=== PATIENT | female | born 1975 | race Caucasian/White ===

== ENCOUNTER 2017-02-26 13:34 | Emergency (ER) | payer MEDICAID ==
[~2017-02-26] VITALS: Ht 162.6 cm; Wt 67.0 kg
[~2017-02-26 13:34] MED LIST: PREN1TAB49 PO
[2017-02-26 13:45] VITALS: Ht 162.6 cm; Wt 67.0 kg
[2017-02-26] MEDS ORDERED: SOD CHLORIDE 0.9% 1,000 ML IV STA (15:50)
[2017-02-26] MEDS ORDERED: KETOROLAC 15 MG INJ IV STA (15:50)
[2017-02-26] MEDS ORDERED: ONDANSETRON 4 MG INJ IV STA (15:50)
[2017-02-26] MEDS ORDERED: BELLADONNA/PHENOBARBITAL TAB PO STA (15:51)
[2017-02-26] MEDS ORDERED: LIDOCAINE/MYLANTA 40 ML BTL PO STA (15:51)
[2017-02-26] MEDS ORDERED: ALPRAZOLAM 0.25 MG TAB PO ONE (16:00)
[2017-02-26 16:03] LABS: ADD SCAN DIFF NO
[2017-02-26 16:06] LABS: BASOPHIL # 0.1 10^3/ul (0.0-0.1); BASOPHILS % 0.7 % (0.0-2.0); EOSINOPHILS # 0.1 10^3/ul (0.0-0.5); EOSINOPHILS % 1.8 % (0.0-7.0); HEMATOCRIT 38.1 % (37.0-47.0); HEMOGLOBIN 12.1 g/dl (12.0-16.0); LYMPHOCYTES # 1.4 10^3/ul (0.8-2.9); MEAN CORPUSCULAR HEMOGLOBIN 29.9 pg (29.0-33.0); MEAN CORPUSCULAR HGB CONC 31.8 g/dl (32.0-37.0); MEAN CORPUSCULAR VOLUME 94.1 fl (82.0-101.0); MEAN PLATELET VOLUME 10.8 fl (7.4-10.4); MONOCYTE # 0.4 10^3/ul (0.3-0.9); NEUTROPHIL # 5.1 10^3/ul (1.6-7.5); NEUTROPHILS % 71.2 % (39.0-77.0); PLATELET COUNT 323 10^3/UL (140-415); RED BLOOD COUNT 4.05 10^6/ul (4.20-5.40); RED CELL DISTRIBUTION WIDTH 13.7 % (11.5-14.5); WHITE BLOOD COUNT 7.1 10^3/ul (4.8-10.8)
--- NOTE | 2017-02-26 16:14 | RADRPT ---
PROCEDURE: XR Chest. CLINICAL INDICATION: Abdominal pain. TECHNIQUE: Single frontal view. COMPARISON: None. FINDINGS: The lungs are clear. The heart size is normal. There is no pleural effusion. There is no pneumothorax. IMPRESSION: 1. Normal chest radiograph. RPTAT: QQ .Alpesh Larsen MD, Date Time Electronically viewed and signed by .Alpesh Larsen MD, on 02/26/2017 16:14 .R/
[2017-02-26 16:28] LABS: ALBUMIN 4.5 g/dl (3.3-4.9); ALBUMIN/GLOBULIN RATIO 1.12; BILIRUBIN,INDIRECT 0.2 mg/dl (0-1.1); BILIRUBIN,TOTAL 0.2 mg/dl (0.2-1.3); CALCIUM 9.4 mg/dl (8.4-10.2); CREATININE 0.48 mg/dl (0.44-1.00); TOTAL PROTEIN 8.5 g/dl (6.1-8.1)
[2017-02-26 16:38] LABS: TROPONIN-I 0.016 ng/ml (0.00-0.12)
[2017-02-26 17:25] LABS: URINE BLOOD (Dip) POC 1+ (NEGATIVE)
[2017-02-26 17:38] LABS: ADD UMIC YES; URINE BILIRUBIN (Dip) NEGATIVE (NEGATIVE); URINE BLOOD (Dip) TRACE (NEGATIVE); URINE COLOR LT. YELLOW (YELLOW); URINE GLUCOSE (Dip) NEGATIVE (NEGATIVE); URINE KETONES (Dip) NEGATIVE (NEGATIVE); URINE LEUKOCYTE ESTERASE (Dip) NEGATIVE (NEGATIVE); URINE NITRITE (Dip) NEGATIVE (NEGATIVE); URINE TOTAL PROTEIN (Dip) NEGATIVE (NEGATIVE); URINE UROBILINOGEN (Dip) 0.2 E.U./dL (0.1-1.0)
[2017-02-26] MEDS ORDERED: NAPR-260 PO (17:41)
[2017-02-26] MEDS ORDERED: ALPR0.5T PO (17:42)
[2017-02-26 18:03] LABS: SQUAMOUS EPITHELIAL CELL,UR FEW; URINE RBCS 0-2 /HPF (0)
[2017-02-26 18:10] VITALS: BP 110/74; PULSE 74; RESP 16; TEMP 98.1
--- NOTE | 2017-02-26 18:24 | ERD ---
ER Documentation Chief Complaint Date/Time DATE: 02/26/17 TIME: 18:19 Chief Complaint Pt with fever, CP body aches X 5 days. HPI 41-year-old woman presents with multiple symptoms including intermittent headache, sharp nonexertional nonradiating chest pain, body aches, tactile fevers, sore throat, nasal congestion 5 days. She denies recent travel or sick contacts, and she has had no antibiotic use. Patient denies neck pain or stiffness, no rash, no dysuria. Patient has had previous headaches in the past and has had similar episodes of chest pain in the past. Patient denies abdominal pain or vaginal discharge. ROS All systems reviewed and are negative except as per history of present illness. Medications Home Meds Active Scripts Alprazolam* (Xanax*) 0.5 Mg Tab, 0.5 MG PO TID for MUSCLE SPASMS, #12 TAB Prov:DAMIAN MCKEON MD 02/26/17 Naproxen* (Naprosyn*) 500 Mg Tablet, 500 MG PO BID Y for PAIN AND/OR INFLAMMATION, #30 TAB Prov:DAMIAN MCKEON MD 02/26/17 Discontinued Reported Medications Vits W-Ca,Fe,Fa(<1MG) () 1 Tab Tablet, 1 TAB PO DAILY 10/29/12 Allergies Allergies: Coded Allergies: No Known Allergy (Unverified , 02/26/17) PMhx/Soc None Medical and Surgical Hx: pt denies Medical Hx History of Surgery: Yes () Anesthesia Reaction: No Hx Neurological Disorder: No Hx Respiratory Disorders: No Hx Cardiac Disorders: No Hx Psychiatric Problems: No Hx Miscellaneous Medical Probl: No Hx Alcohol Use: No Hx Substance Use: No Hx Tobacco Use: No Smoking Status: Never smoker FmHx Family History: No diabetes Physical Exam Vitals Vital Signs Date Time Temp Pulse Resp B/P Pulse Ox O2 Delivery O2 Flow Rate FiO2 02/26/17 13:45 98.2 75 18 114/76 100 Physical Exam GENERAL: Well-developed, well-nourished, well-hydrated, appears anxious HEENT: Moist mucous membranes, pink conjunctiva, no cervical spine tenderness or step-off deformities, no goiter, no jaundice or icterus, extraocular movements intact without pain. No submandibular induration, and no pharyngeal erythema NEURO: Alert and oriented 3, cranial nerves II through XII intact bilaterally, pupils equal round reactive to light, no focal deficits or facial asymmetry, sensation intact distally Strength 5/5 in upper and lower extremities bilaterally CARDIAC: Regular rate and rhythm, no murmurs rubs or gallops LUNGS: Clear bilaterally no wheezing crackles or stridor ABDOMEN: Soft nontender, no guarding, no rigidity, no rebound, no psoas sign no obturator sign. Normoactive bowel sounds SKIN: Warm and dry to touch, no abrasions, contusions, or hematomas, no lacerations, no ecchymosis, no target lesions, and without ulcers EXTREMITIES: No clubbing cyanosis or edema, calves are bilaterally symmetrical, no Homans sign, no popliteal cord sign. Distal pulses equal and bilateral PSYCH: Anxious Result Diagram: 02/26/17 1555 02/26/17 1555 Results 24 hrs Laboratory Tests Test 02/26/17 15:55 02/26/17 17:05 02/26/17 17:26 White Blood Count 7.110^3/ul Red Blood Count 4.0510^6/ul Hemoglobin 12.1g/dl Hematocrit 38.1% Mean Corpuscular Volume 94.1fl Mean Corpuscular Hemoglobin 29.9pg Mean Corpuscular Hemoglobin Concent 31.8g/dl Red Cell Distribution Width 13.7% Platelet Count 65199^3/UL Mean Platelet Volume 10.8fl Neutrophils % 71.2% Lymphocytes % 20.0% Monocytes % 6.0% Eosinophils % 1.8% Basophils % 0.7% Nucleated Red Blood Cells % 0.0/100WBC Neutrophils # 5.110^3/ul Lymphocytes # 1.410^3/ul Monocytes # 0.410^3/ul Eosinophils # 0.110^3/ul Basophils # 0.110^3/ul Nucleated Red Blood Cells # 0.010^3/ul Sodium Level 139mmol/L Potassium Level 5.0mmol/L Chloride Level 106mmol/L Carbon Dioxide Level 25mmol/L Anion Gap 13 Blood Urea Nitrogen 11mg/dl Creatinine 0.48mg/dl Glucose Level 86mg/dl Calcium Level 9.4mg/dl Total Bilirubin 0.2mg/dl Direct Bilirubin 0.00mg/dl Indirect Bilirubin 0.2mg/dl Aspartate Amino Transf (AST/SGOT) 44IU/L Alanine Aminotransferase (ALT/SGPT) 35IU/L Alkaline Phosphatase 102IU/L Troponin I 0.016ng/ml Total Protein 8.5g/dl Albumin 4.5g/dl Globulin 4.00g/dl Albumin/Globulin Ratio 1.12 Lipase 47U/L Urine Color LT. YELLOW Urine Clarity CLEAR Urine pH 6.0 Urine Specific Turner 1.010 Urine Ketones NEGATIVE Urine Nitrite NEGATIVE Urine Bilirubin NEGATIVE Urine Urobilinogen 0.2 E.U./dL Urine Leukocyte Esterase NEGATIVE Urine Microscopic RBC 0-2/HPF Urine Microscopic WBC 0-2/HPF Urine Squamous Epithelial Cells FEW Urine Hemoglobin TRACE Urine Glucose NEGATIVE% Urine Total Protein NEGATIVE Bedside Urine pH (LAB) 6.0 Bedside Urine Protein (LAB) Negative Bedside Urine Glucose (UA) Negative Bedside Urine Ketones (LAB) Negative Bedside Urine Blood 1+ Bedside Urine Nitrite (LAB) Negative Bedside Urine Leukocyte Esterase (L Negative Current Medications Medications (Trade) Dose Ordered Sig/Shayna Route PRN Reason Start Time Stop Time Status Last Admin Dose Admin Sodium Chloride (NS) 1,000 ml @ 1,000 mls/hr Q1H STAT IV 02/26/17 15:50 02/26/17 16:49 DC 02/26/17 16:39 Ondansetron HCl (Zofran Inj) 4 mg ONCE STAT IV 02/26/17 15:50 02/26/17 16:04 DC 02/26/17 16:39 Ketorolac Tromethamine (Toradol) 15 mg ONCE STAT IV 02/26/17 15:50 02/26/17 16:04 DC 02/26/17 16:40 Alprazolam (Xanax) 0.5 mg ONCE ONCE PO 02/26/17 16:00 02/26/17 16:04 DC 02/26/17 16:39 Miscellaneous Medication (Gi Cocktail (2)) 40 ml ONCE STAT PO 02/26/17 15:51 02/26/17 16:04 DC 02/26/17 16:39 Belladonna/ Phenobarbital () 2 tab ONCE STAT PO 02/26/17 15:51 02/26/17 16:04 DC 02/26/17 16:40 Procedures/MDM IV line was established patient was placed on service order taker rhythm strip revealed a sinus rhythm at about 70 bpm with upright P and T waves. Patient was afebrile. EKG performed, read by me: 69 bpm, normal sinus rhythm, normal axis, no acute ST segment changes, narrow QRS complex, with good R-wave progression in precordial leads. One AP view of the chest performed, read by me reveals no acute infiltrates, normal mediastinum, sharp costophrenic and cardiac borders, no air under the diaphragm. Otherwise unremarkable chest x-ray. I administered 1 L normal saline intravenously, GI cocktail 50 cc p.o., Toradol 15 mg IV, Zofran 4 mg IV, and alprazolam 0.5 mg p.o. with good effect. test was negative, urine analysis was negative for infection, CBC and electrolytes were normal, liver function tests are normal, troponin was negative. After management in the ED patient was without complaints of chest pain and stated her headache improved. She had no neurologic deficits on repeat neurologic examination performed by me just prior to discharge. Her vital signs remained normal and she looks well, she has no concerning past medical or family history and can be managed as an outpatient. Differential diagnoses considered, included but not limited to acute coronary syndrome, pulmonary embolism, aortic dissection, abdominal aortic aneurysm, sepsis, stroke, meningitis, encephalitis, pneumonia, appendicitis, cholecystitis , bowel obstruction, pyelonephritis, nephrolithiasis, cystitis, as well as metabolic, hematologic, and electrolyte abnormalities. As well as abscess, cellulitis, fractures, and dislocations. Patient feels much better at this time, and vital signs are normal, symptoms have improved. I did give strict instructions to return to the ED if symptoms continue or worsen, patient will otherwise follow-up with primary care physician. Patient understood instructions and agreed to plan. Departure Diagnosis: Primary Impression: Chest pain Chest pain type: unspecified Qualified Code: R07.9 - Chest pain, unspecified type Additional Impressions: Headache Headache type: tension-type Headache chronicity pattern: acute headache Intractability: not intractable Qualified Code: G44.209 - Acute non intractable tension-type headache URI (upper respiratory infection) URI type: acute nasopharyngitis (common cold) Qualified Code: J00 - Acute nasopharyngitis Condition: Good Patient Instructions: Chest Pain, Uncertain Cause, Headache, Tension DAMIAN MCKEON MD February 26, 2017 18:24
== END 2017-02-26 18:10 | disposition home or self-care (01) ==
LOC: E/R 13:34
DX: R07.9 Chest pain, unspecified (principal); G44.209 Tension-type headache, unspecified, not intractable; J00 Acute nasopharyngitis [common cold]; R40.2142 Coma scale, eyes open, spontaneous, at arrival to emergency department; R40.2252 Coma scale, best verbal response, oriented, at arrival to emergency department; R40.2362 Coma scale, best motor response, obeys commands, at arrival to emergency department
CPT/HCPCS: 36415; 71010; 80053; 81001; 81003; 83690; 84484; 85025; 93005; 96374; 96375; J1885; J2405; J7030; Z7502; Z7610

== ENCOUNTER 2017-07-02 08:50 | Emergency (ER) | payer MEDICAID ==
[~2017-07-02] VITALS: Wt 68.5 kg
[~2017-07-02 08:50] MED LIST changes: +ALPR0.5T PO; +NAPR-260 PO; -PREN1TAB49 PO
[2017-07-02] MEDS ORDERED: SOD CHLORIDE 0.9% 1,000 ML IV STA (09:39)
[2017-07-02] MEDS ORDERED: DIPHENHYDRAMINE 50 MG INJ IV STA (09:39)
[2017-07-02] MEDS ORDERED: METOCLOPRAMIDE 10 MG INJ IV STA (09:39)
--- NOTE | 2017-07-02 11:52 | RADRPT ---
PROCEDURE: CT Brain without contrast. CLINICAL INDICATION: Pain, headache TECHNIQUE: Routine CT scan of the brain was performed on a high resolution multi detector scanner without intravenous contrast. One or more of the following dose reduction techniques were used: Auto mated exposure control; Adjustment of the mA and/or kV according to patient size; Use of iterative r econstruction technique. CTDI = 43 mGy. DLP = 720 mGy-cm. COMPARISON: No prior relevant examinations are available for comparison. FINDINGS: Hemorrhage: No evidence of intracranial hemorrhage. Acute ischemic changes: No evidence of acute ischemic changes. Mass effect: None. Parenchymal volume: Within normal limits for age. Ventricular system: Concordant with parenchymal volume. Chronic changes: Parenchymal attenuation is within normal limits. Several small scattered leptomenin geal appearing calcifications are present measuring 1 - 3 mm involving both cerebral convexities. Extracranial soft tissues: Unremarkable. Calvarium: No fractures. Paranasal sinuses: Visualized paranasal sinuses are clear. Mastoid air cells: Visualized mastoid air cells are clear. IMPRESSION: No acute intracranial abnormalities. Normal appearance of the brain parenchyma. Several small scattered leptomeningeal calcifications are present measuring 1 - 3 mm involving both cerebral convexities suggestive of prior granulomatous process/infection. RPTAT: AADD .Gage Cherry MD, MD Date Time Electronically viewed and signed by .Gage Cherry MD, MD on 07/02/2017 11:52 .B/
[2017-07-02] MEDS ORDERED: KETOROLAC 30 MG INJ IV STA (12:02)
[2017-07-02] MEDS ORDERED: ONDA4TAB14 PO (12:14)
[2017-07-02] MEDS ORDERED: IBUP-1542 PO (12:14)
--- NOTE | 2017-07-02 12:26 | ERD ---
ER Documentation Chief Complaint Date/Time DATE: 07/02/17 TIME: 12:19 Chief Complaint salazar x 8 days HPI Patient is a 42-year-old female with no past medical history presents emergency department for concerns of a headache 8 days. Patient states she has had headaches in the past however this headache has lasted longer than usual. Patient describes the pain to be in her entire head. Patient states she took Advil with no alleviation of symptoms. Patient reports nausea and vomiting. She states she vomited 3 times yesterday, nonbloody nonbilious. Patient denies any fevers, chills, blurry vision, neck stiffness, neck pain or loss of consciousness. Patient denies any arm weakness. Patient is speaking in full sentences. Patient is able to ambulate without any difficulty.She denies any chest pain, shortness of breath, left upper extremity pain, diaphoresis. ROS All systems reviewed and are negative except as per history of present illness. Medications Home Meds Active Scripts Ondansetron (Ondansetron Odt) 4 Mg Tab.rapdis, 4 MG PO Q6H Y for NAUSEA AND/OR VOMITING, #10 TAB Prov:AGNES LANGLEY PA-C 07/02/17 Ibuprofen* (Motrin*) 600 Mg Tab, 600 MG PO Q6, #30 TAB Prov:AGNES LANGLEY PA-C 07/02/17 Alprazolam* (Xanax*) 0.5 Mg Tab, 0.5 MG PO TID for MUSCLE SPASMS, #12 TAB Prov:DAMIAN MCKEON MD 02/26/17 Naproxen* (Naprosyn*) 500 Mg Tablet, 500 MG PO BID Y for PAIN AND/OR INFLAMMATION, #30 TAB Prov:DAMIAN MCKEON MD 02/26/17 Allergies Allergies: Coded Allergies: No Known Allergy (Unverified , 07/02/17) PMhx/Soc History of Surgery: Yes () Anesthesia Reaction: No Hx Neurological Disorder: No Hx Respiratory Disorders: No Hx Cardiac Disorders: No Hx Psychiatric Problems: No Hx Miscellaneous Medical Probl: No Hx Alcohol Use: No Hx Substance Use: No Hx Tobacco Use: No Smoking Status: Never smoker Physical Exam Vitals Vital Signs Date Time Temp Pulse Resp B/P Pulse Ox O2 Delivery O2 Flow Rate FiO2 9/18/17 12:28 98.3 60 20 99/57 100 Room Air 07/02/17 08:53 97.8 83 18 132/63 99 Physical Exam GENERAL: Well-developed, well-nourished female. Appears in no acute distress. Speaking in full sentences. HEAD: Normocephalic, atraumatic. EYES: Pupils are equally reactive bilaterally. EOMs grossly intact. No conjunctival erythema. ENT: Moist mucous membranes. No uvula deviation. No kissing tonsils. NECK: Supple. No meningismus. Normal range of motion of the neck. LUNG: Clear to auscultation bilaterally. No rhonchi, wheezing, rales or coarse breath sounds. HEART: Regular rate and rhythm. No murmurs, rubs or gallops. BACK: No midline tenderness. EXTREMITIES: Equal pulses bilaterally. No peripheral clubbing, cyanosis or edema. No unilateral leg swelling. NEUROLOGIC: Alert and oriented x3, cooperative. Mood and affect appropriate to situation. Cranial nerves II through XII are grossly intact. Normal speech. Motor exam: 5/5 strength in upper and lower extremities. Sensory exam: Sensation intact to light touch on all four extremities. Cerebellar function exam: Rapid alternating movements intact. No dysmetria on [id number] test. Steady gait. No pronator drift. SKIN: Normal color. Warm and dry. No rashes or lesions. Results 24 hrs Current Medications Medications (Trade) Dose Ordered Sig/Shayna Route PRN Reason Start Time Stop Time Status Last Admin Dose Admin Sodium Chloride (NS) 1,000 ml @ 1,000 mls/hr Q1H STAT IV 07/02/17 09:39 07/02/17 10:38 DC 07/02/17 10:03 Metoclopramide HCl (Reglan) 10 mg ONCE STAT IV 07/02/17 09:39 07/02/17 09:41 DC 07/02/17 10:06 Diphenhydramine HCl (Benadryl) 25 mg ONCE STAT IV 07/02/17 09:39 07/02/17 09:41 DC 07/02/17 10:06 Ketorolac Tromethamine (Toradol) 30 mg ONCE STAT IV 07/02/17 12:02 07/02/17 12:03 DC 07/02/17 12:11 Procedures/MDM ED COURSE: The patient was stable throughout ED course. I kept the patient and/or family informed of laboratory and diagnostic imaging results throughout the ED course. DIAGNOSTIC IMAGING: Read by radiologist. DIAGNOSTIC IMAGING REPORT Patient: MONICA ABAD : 1975 Age: 42 Sex: F [id number] DOS: 07/02/17 0939 Ordering MD: AGNES LANGLEY PA-C Location: [facility] Room/Bed: PROCEDURE: CT Brain without contrast. CLINICAL INDICATION: Pain, headache TECHNIQUE: Routine CT scan of the brain was performed on a high resolution multi detector scanner without intravenous contrast. One or more of the following dose reduction techniques were used: Automated exposure control; Adjustment of the mA and/or kV according to patient size; Use of iterative reconstruction technique. CTDI = 43 mGy. DLP = 720 mGy-cm. COMPARISON: No prior relevant examinations are available for comparison. FINDINGS: Hemorrhage: No evidence of intracranial hemorrhage. Acute ischemic changes: No evidence of acute ischemic changes. Mass effect: None. Parenchymal volume: Within normal limits for age. Ventricular system: Concordant with parenchymal volume. Chronic changes: Parenchymal attenuation is within normal limits. Several small scattered leptomeningeal appearing calcifications are present measuring 1 - 3 mm involving both cerebral convexities. Extracranial soft tissues: Unremarkable. Calvarium: No fractures. Paranasal sinuses: Visualized paranasal sinuses are clear. Mastoid air cells: Visualized mastoid air cells are clear. IMPRESSION: No acute intracranial abnormalities. Normal appearance of the brain parenchyma. Several small scattered leptomeningeal calcifications are present measuring 1 - 3 mm involving both cerebral convexities suggestive of prior granulomatous process/infection. RPTAT: AADD .Gage Cherry MD, MD Date Time Electronically viewed and signed by .Gage Cherry MD, on 07/02/2017 11:52 .B/ CC: AGNES LANGLEY PA-C PROCEDURES: None. MEDICATIONS GIVEN: IV Fluids, Benadryl, Reglan. Toradol was given after negative CT scan was obtained for acute intracranial hemorrhage. Patient tolerated medication well with no adverse reactions. Patient reported improvement in pain. MEDICAL DECISION MAKING: Patient is a 42-year-old female who presents with concerns of a headache lasting 8 days. Vital signs were reviewed. Patient was afebrile. Patient is not hypoxic. Patient states she has gotten headaches in the past however her current headache lasted longer than usual.. Patient denied any fevers, neck stiffness, jaw claudication, visual changes or LOC. Full neurological exam was normal. CT scan of the brain was obtained and showed no acute intracranial abnormalities. Normal appearance of the brain parenchyma. Several small scattered leptomeningeal calcifications are present measuring 1 - 3 mm involving both cerebral convexities suggestive of prior granulomatous process/ infection. Discussed the patient's CT scan results with my supervising physician Dr. 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 I spoke with Dr. 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 I discussed the patient's findings with her. Patient reported being born in [place] which could explain findings consistent with cysticercosis. She was advised that she will need to follow-up with a neurologist/surgeon on an outpatient basis. Referral information for Dr. Nieves given to the patient. Patient also advised to follow-up with her primary care physician for referral to a neurologist and her insurance network. Given these findings, the patients presentation is most consistent with headache. Low suspicion for intracranial hemorrhage, meningitis, encephalitis, CO poisoning, temporal arteritis, benign intracranial hypertension, intracranial mass, glaucoma, sinusitis. PRESCRIPTIONS: Ibuprofen Zofran DISCHARGE: At this time, patient is stable for discharge and outpatient management. Patient given a copy of all imaging studies obtained and referral information. I have encouraged the patient to hydrate well. I have instructed the patient to follow-up with his/her primary care physician in 1-2 days. If symptoms persist, patient may need to see a specialist for further examinations and testing. I have instructed the patient to promptly return to the ER at any time for any new or worsening symptoms including increased increased pain, fever, nausea, vomiting, numbness, neck stiffness, visual changes, weakness or LOC. The patient and/or family expressed understanding of and agreement with this plan. All questions were answered. Home care instructions were provided. Disclaimer: Inadvertent spelling and grammatical errors are likely due to EHR/ dictation software use and do not reflect on the overall quality of patient care. Also, please note that the electronic time recorded on this note does not necessarily reflect the actual time of the patient encounter Departure Diagnosis: Primary Impression: Headache Headache type: unspecified Headache chronicity pattern: unspecified pattern Intractability: not intractable Qualified Code: R51 - Nonintractable headache, unspecified chronicity pattern, unspecified headache type Condition: Stable Patient Instructions: Self-Care for Headaches Referrals: [facility] YOU HAVE RECEIVED A MEDICAL SCREENING EXAM AND THE RESULTS INDICATE THAT YOU DO NOT HAVE A CONDITION THAT REQUIRES URGENT TREATMENT IN THE EMERGENCY DEPARTMENT. FURTHER EVALUATION AND TREATMENT OF YOUR CONDITION CAN WAIT UNTIL YOU ARE SEEN IN YOUR DOCTORS OFFICE WITHIN THE NEXT 1-2 DAYS. IT IS YOUR RESPONSIBILITY TO MAKE AN APPOINTMENT FOR FOLOW-UP CARE. IF YOU HAVE A PRIMARY DOCTOR --you should call your primary doctor and schedule an appointment IF YOU DO NOT HAVE A PRIMARY DOCTOR YOU CAN CALL OUR PHYSICIAN REFERRAL HOTLINE AT IF YOU CAN NOT AFFORD TO SEE A PHYSICIAN YOU CAN CHOSE FROM THE FOLLOWING [facility] [address] [facility]. [facility] [address] [facility] [address] [facility] [address] [facility]. [facility] [address] [facility]. [facility] [address] [facility] YOU HAVE RECEIVED A MEDICAL SCREENING EXAM AND THE RESULTS INDICATE THAT YOU DO NOT HAVE A CONDITION THAT REQUIRES URGENT TREATMENT IN THE EMERGENCY DEPARTMENT. FURTHER EVALUATION AND TREATMENT OF YOUR CONDITION CAN WAIT UNTIL YOU ARE SEEN IN YOUR DOCTORS OFFICE WITHIN THE NEXT 1-2 DAYS. IT IS YOUR RESPONSIBILITY TO MAKE AN APPOINTMENT FOR FOLOW-UP CARE. IF YOU HAVE A PRIMARY DOCTOR --you should call your primary doctor and schedule and appointment IF YOU DO NOT HAVE A PRIMARY DOCTOR YOU CAN CALL OUR PHYSICIAN REFERRAL HOTLINE AT . IF YOU CAN NOT AFFORD TO SEE A PHYSICIAN YOU CAN CHOSE FROM THE FOLLOWING [facility] INSTITUTIONS: [facility] [address] [place] [address] [facility] [address] [place] [address] [facility] + [facility] [address] [place] [address] Additional Instructions: Follow up with neurologist. See information below. Dr. Nieves Address: [address], [place] [address] Call your primary care doctor TOMORROW for an appointment during the next 1-2 days.See the doctor sooner or return here if your condition worsens before your appointment time. AGNES LANGLEY PA-C Jul 02, 2017 12:26
[2017-07-02 12:28] VITALS: BP 99/57; PULSE 60; RESP 20; TEMP 98.3
== END 2017-07-02 12:29 | disposition home or self-care (01) ==
LOC: FTE 08:50
DX: R51 Headache (principal); R11.2 Nausea with vomiting, unspecified
CPT/HCPCS: 36415; 70450; 96374; 96375; J1200; J2765; J7030; Z7502

== ENCOUNTER 2018-05-12 08:00 | Observation (INO) | END 2018-05-13 16:45 | disposition home or self-care (01) ==